=== PATIENT | female | born 1980 | race Caucasian/White ===

== ENCOUNTER 2018-07-29 14:08 | Emergency (ER) | payer BC ==
[2018-07-29 15:49] LABS: Urine Blood NEGATIVE (NEG); Urine Glucose NEGATIVE (NEG); Urine Protein TRACE (NEG)
[2018-07-29 15:50] LABS: Absolute Lymphocytes (CBC) 1.7 K/uL (0.7-4.9); Absolute Monocytes 0.8 K/uL (0.1-1.3); Basophils % 0.5 % (0-1.3); Eosinophils % 1.3 % (0-4.4); Hematocrit 45.5 % (36.0-45.0); Lymphocytes % 14.7 % (15.3-44.8); MPV 7.4 fL (7.6-11.3); Monocytes % 7.2 % (3.3-12.3); RBC Red Blood Cell Count 4.95 M/uL (3.86-4.86)
[2018-07-29] MEDS ORDERED: ONDANSETRON 4 MG/2 ML VIAL ONE (15:50)
[2018-07-29] MEDS ORDERED: DIPHENHYDRAMINE 50 MG/ML VIAL ONE (15:50)
[2018-07-29] MEDS ORDERED: FAMOTIDINE 20 MG/2 ML VIAL IV ONE (15:51)
[2018-07-29] MEDS ORDERED: NA CHLORIDE 0.9% 1,000 ML ONE (15:51)
[2018-07-29] MEDS ORDERED: DICYCLOMINE HCL 20 MG/2 ML AMP IM ONE (15:52)
[2018-07-29] MEDS ORDERED: KETOROLAC 30 MG/ML INJ ONE (16:03)
[2018-07-29 16:11] LABS: ALT/SGPT 22 U/L (12-78); AST/SGOT 11 U/L (15-37); Alkaline Phosphatase 92 U/L (45-117); BUN Blood Urea Nitrogen 10 mg/dL (7-18); Bicarbonate 23 mmol/L (21-32); Bilirubin Direct < 0.1 mg/dL (0-0.2); Bilirubin Total 0.3 mg/dL (0.2-1.0); Glucose Level 88 mg/dL (74-106); Lipase 74 U/L (73-393); Potassium 3.7 mmol/L (3.5-5.1); Protein, Total 7.9 g/dL (6.4-8.2); Sodium Level 140 mmol/L (136-145)
--- NOTE | 2018-07-29 17:17 | RAD REPORT ---
EXAM DESCRIPTION: CT - Abdomen Pelvis W Contrast - 07/29/2018 4:45 pm CLINICAL HISTORY: Abdominal pain COMPARISON: 2016 TECHNIQUE: Computed axial tomography of the abdomen pelvis was obtained. 100 cc Isovue-300 was admin istered intravenously. Oral contrast was not requested which limits evaluation of bowel. All CT scans are performed using dose optimization technique as appropriate and may include automated exposure control or mA/KV adjustment according to patient size. FINDINGS: The liver, spleen, pancreas, and left adrenal and kidneys appear unremarkable. Small right adrenal mass unchanged likely adenoma There is no evidence of diverticulitis.Normal appendix Cholecystectomy. The wall of several loops of jejunum is thickened. Fluid is present within nondilated small bowel. Small amount pelvici ascites IMPRESSION: Thickening of the wall of several loops of jejunum may indicate inflammation or infectio n.
--- NOTE | 2018-07-29 17:38 | ER ---
Nurse's Notes [facility] Name: Carolann Carty Age: 38 yrs Sex: Female : 1980 Arrival Date: 07/29/2018 Time: 14:11 Bed 30 Private MD: Diagnosis: Nausea;Other abdominal pain Presentation: 07/29 14:25 Presenting complaint: Patient states: generalized abd cramping that began today at aa5 0800. Pt also reports nausea, constipation, and states "when I get the pain I get dizzy". Transition of care: patient was not received from another setting of care. Onset of symptoms was July 29, 2018. Risk Assessment: Do you want to hurt yourself or someone else? Patient reports no desire to harm self or others. Initial Sepsis Screen: Does the patient meet any 2 criteria? No. Patient's initial sepsis screen is negative. Does the patient have a suspected source of infection? No. Patient's initial sepsis screen is negative. Care prior to arrival: None. 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 - Social history:: Smoking status: Patient uses tobacco products, smokes one pack cigarettes per day. - Ebola Screening: : No symptoms or risks identified at this time. Screenin:28 Abuse screen: Denies threats or abuse. Denies injuries from another. Nutritional rv screening: No deficits noted. Tuberculosis screening: No symptoms or risk factors identified. Fall Risk None identified. Assessment: 15:27 General: Appears in no apparent distress. uncomfortable, Behavior is calm, cooperative. rv Pain: Complains of pain in abdomen Pain currently is 8 out of 10 on a pain scale. Quality of pain is described as crampy. Neuro: Level of Consciousness is awake, alert, obeys commands, Oriented to person, place, time, situation. Cardiovascular: Patient's skin is warm and dry. Respiratory: Airway is patent. GI: Bowel sounds present X 4 quads. Abd is soft Abdomen is tender to palpation. GI: Reports cramping. : No signs and/or symptoms were reported regarding the genitourinary system. EENT: No signs and/or symptoms were reported regarding the EENT system. Derm: Skin is intact. Musculoskeletal: No signs and/or symptoms reported regarding the musculoskeletal system. Vital Signs: 14:27 BP 143 / 100; Pulse 91; Resp 18 S; Temp 99.0(O); Pulse Ox 100% on R/A; Weight 93.44 kg aa5 (R); Height 5 ft. 7 in. (170.18 cm) (R); Pain 6/10; 15:30 BP 131 / 90; Pulse 94; Resp 18; Pulse Ox 100% ; rv 16:00 BP 118 / 80; Pulse 77; Resp 17; Pulse Ox 97% ; rv 16:56 BP 128 / 80; Pulse 81; Resp 16; Temp 97.9(O); Pulse Ox 100% ; lt1 17:01 BP 128 / 82; Pulse 81; Resp 18; Temp 98; Pulse Ox 99% ; rv 17:50 BP 126 / 79; Pulse 76; Resp 17; Temp 98; Pulse Ox 99% ; rv 14:27 Body Mass Index 32.26 (93.44 kg, 170.18 cm) aa5 ED Course: 14:11 Patient arrived in ED. mr 14:25 Arm band placed on. aa5 14:26 Triage completed. aa5 14:56 Duke Drummond PA is PHCP. cp 14:56 Wes Mosley MD is Attending Physician. cp 15:14 Gerardo Alarcon, JULIA is Primary Nurse. rv 15:20 Inserted saline lock: 22 gauge in right forearm, using aseptic technique. Blood rv collected. 15:29 Patient has correct armband on for positive identification. Bed in low position. Call rv light in reach. Side rails up X 1. Pulse ox on. NIBP on. 16:[address] via wheelchair. nj 16:46 CT Abd/Pelvis - IV Contrast Only In Process Unspecified. EDMS 17:37 Ernesto Galarza MD is Referral Physician. cp 17:51 No provider procedures requiring assistance completed. IV discontinued, intact, rv bleeding controlled, No redness/swelling at site. Pressure dressing applied. Administered Medications: 15:35 Drug: Zofran 4 mg Route: IVP; Site: right forearm; rv 17:00 Follow up: Response: Nausea is decreased rv 15:35 Drug: NS 0.9% 1000 ml Route: IV; Rate: 1 bolus; Site: right forearm; rv 17:00 Follow up: IV Status: Completed infusion; IV Intake: 1000ml rv 15:40 Drug: Benadryl 12.5 mg Route: IVP; Site: right forearm; rv 16:59 Follow up: Response: Marked relief of symptoms; Pain is decreased rv 15:42 Drug: Pepcid 20 mg Route: IVP; Site: right forearm; rv 17:00 Follow up: Response: Marked relief of symptoms; Pain is decreased rv 15:45 Drug: Bentyl 20 mg Route: IM; Site: right deltoid; rv 16:59 Follow up: Response: Marked relief of symptoms; Pain is decreased rv 15:55 Drug: TORadol 30 mg Route: IVP; Site: right forearm; rv 16:59 Follow up: Response: Marked relief of symptoms; Pain is decreased rv 17:45 Drug: Cipro 500 mg Route: PO; rv 17:52 Follow up: Response: Medication administered at discharge. rv 17:45 Drug: metroNIDAZOLE 500 mg Route: PO; rv 17:52 Follow up: Response: Medication administered at discharge. rv 18:00 Drug: morphine 2 mg Route: IVP; Site: right forearm; rv 18:00 Follow up: Response: Medication administered at discharge. rv Intake: 17:00 IV: 1000ml; Total: 1000ml. rv Outcome: 17:39 Discharge ordered by MD. cp 17:51 Discharged to home ambulatory, with a friend driving the patient home. rv 17:51 Condition: good 17:51 Discharge instructions given to patient, Instructed on discharge instructions, follow up and referral plans. medication usage, Demonstrated understanding of instructions, follow-up care, medications, Prescriptions given X 4. 18:01 Patient left the ED. rv Signatures: Dispatcher [employer] EFRAIN Luis AntonioNicole NilsonVickie, RN RN aa5 Duke Drummond PA PA Hugo Smith Ronaldo, RN RN rv Katya Gage lt1 Corrections: (The following items were deleted from the chart) 17:02 17:01 BP 128 / 82; Pulse 81bpm; Resp 18bpm; Pulse Ox 99%; Temp 98.5F; rv rv
--- NOTE | 2018-07-29 17:39 | EDPHYS ---
Physician Documentation [facility] Name: Carolann Carty Age: 38 yrs Sex: Female : 1980 Arrival Date: 07/29/2018 Time: 14:11 Bed 30 Private MD: ED Physician Wes Mosley HPI: 07/29 15:25 This 38 yrs old Female presents to ER via Ambulatory with complaints of cp Abdominal Cramping, Nausea, Dizziness. 15:25 The patient presents with abdominal pain that is diffuse. Onset: The symptoms/episode cp began/occurred this morning. The symptoms do not radiate. Associated signs and symptoms: Pertinent positives: nausea, Pertinent negatives: blood in stools, constipation, diarrhea, dysuria, fever, headache, shortness of breath, vomiting. The symptoms are described as crampy. Severity of pain: in the emergency department the pain has improved mildly. 15:25 The patient has experienced similar episodes in the past, multiple times, but today's cp symptoms are worse, more painful. 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 - Social history:: Smoking status: Patient uses tobacco products, smokes one pack cigarettes per day. - Ebola Screening: : No symptoms or risks identified at this time. ROS: 15:30 Constitutional: Negative for body aches, chills, fever, poor PO intake. cp 15:30 Eyes: Negative for injury, pain, redness, and discharge. cp 15:30 ENT: Negative for drainage from ear(s), ear pain, sore throat, difficulty swallowing, difficulty handling secretions. 15:30 Neck: Negative for pain with movement, pain at rest, stiffness. 15:30 Cardiovascular: Negative for chest pain, edema, palpitations. 15:30 Respiratory: Negative for cough, shortness of breath, wheezing. 15:30 Abdomen/GI: Positive for abdominal pain, nausea, abdominal cramps, Negative for vomiting, diarrhea, constipation, black/tarry stool, rectal bleeding. 15:30 Back: Negative for radiated pain. 15:30 : Negative for urinary symptoms, vaginal bleeding, vaginal discharge. 15:30 Skin: Negative for cellulitis, rash. 15:30 Neuro: Positive for dizziness, Negative for altered mental status, headache, weakness. 15:30 All other systems are negative. Exam: 15:40 Constitutional: The patient appears in no acute distress, alert, awake, non-toxic, well cp developed, well nourished, uncomfortable. 15:40 Head/Face: Normocephalic, atraumatic. cp 15:40 Eyes: Periorbital structures: appear normal, Conjunctiva: normal, no exudate, no injection, Sclera: no appreciated abnormality, Lids and lashes: appear normal, bilaterally. 15:40 ENT: External ear(s): are unremarkable, Nose: is normal, Mouth: Lips: moist, Oral mucosa: pink and intact, moist, Posterior pharynx: is normal, airway is patent, no erythema, no exudate. 15:40 Neck: ROM/movement: is normal, is supple, without pain, no range of motions limitations, no nuchal rigidity. 15:40 Chest/axilla: Inspection: normal, Palpation: is normal, no crepitus, no tenderness. 15:40 Cardiovascular: Rate: normal, Rhythm: regular. 15:40 Respiratory: the patient does not display signs of respiratory distress, Respirations: normal, no use of accessory muscles, no retractions, no splinting, no tachypnea, labored breathing, is not present, Breath sounds: are clear throughout, no decreased breath sounds, no stridor, no wheezing. 15:40 Abdomen/GI: Inspection: abdomen appears normal, Bowel sounds: active, all quadrants, Palpation: soft, in all quadrants, moderate abdominal tenderness, in all quadrants, rebound tenderness, is not appreciated, voluntary guarding, is elicited in all quadrants. 15:40 Back: pain, is absent, ROM is normal. 15:40 Skin: no rash present. 15:40 Neuro: Orientation: to person, place \T\ time. Mentation: is normal. Vital Signs: 14:27 BP 143 / 100; Pulse 91; Resp 18 S; Temp 99.0(O); Pulse Ox 100% on R/A; Weight 93.44 kg aa5 (R); Height 5 ft. 7 in. (170.18 cm) (R); Pain 6/10; 15:30 BP 131 / 90; Pulse 94; Resp 18; Pulse Ox 100% ; rv 16:00 BP 118 / 80; Pulse 77; Resp 17; Pulse Ox 97% ; rv 16:56 BP 128 / 80; Pulse 81; Resp 16; Temp 97.9(O); Pulse Ox 100% ; lt1 17:01 BP 128 / 82; Pulse 81; Resp 18; Temp 98; Pulse Ox 99% ; rv 17:50 BP 126 / 79; Pulse 76; Resp 17; Temp 98; Pulse Ox 99% ; rv 14:27 Body Mass Index 32.26 (93.44 kg, 170.18 cm) aa5 MDM: 14:56 Patient medically screened. cp 17:38 Data reviewed: vital signs, nurses notes, lab test result(s), radiologic studies, CT cp scan. 17:38 Differential diagnosis: appendicitis, gastritis, non-specific abd pain, pancreatitis, cp Pyelonephritis, Ureterolithiasis, urinary tract infection. 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 Response to treatment: the patient's symptoms have markedly improved after treatment, and as a result, I will discharge patient. 07/29 15:21 Order name: Basic Metabolic Panel; Complete Time: 16:18 cp 07/29 17:23 Interpretation: Normal except: CL 108; GFR 84. cp 07/29 15:21 Order name: CBC with Diff; Complete Time: 16:18 cp 07/29 17:23 Interpretation: Normal except: WBC 11.9; RBC 4.95; HCT 45.5; MPV 7.4; IGLESIA% 76.3; LYM% cp 14.7; NEUT A 9.0. 07/29 15:21 Order name: Creatinine for Radiology; Complete Time: 16:18 cp 07/29 15:21 Order name: Hepatic Function; Complete Time: 16:18 cp 07/29 17:23 Interpretation: Normal except: AST 11; GLOB 3.9; A/G 1.0. cp / 15:21 Order name: Lipase; Complete Time: 16:18 cp /07 15:38 Order name: Urine Dipstick--Ancillary (enter results); Complete Time: 16:18 eb 07/29 15:38 Order name: Urine --Ancillary (enter results); Complete Time: 16:18 eb 07/29 16:24 Order name: CT Abd/Pelvis - IV Contrast Only; Complete Time: 17:22 cp 07/29 15:21 Order name: IV Saline Lock; Complete Time: 15:27 cp 07/29 15:21 Order name: Labs collected and sent; Complete Time: 15:27 cp 07/29 15:21 Order name: Urine Dipstick-Ancillary (obtain specimen); Complete Time: 15:27 cp 07/29 15:21 Order name: Urine Test (obtain specimen); Complete Time: 15:27 cp 07/29 17:33 Order name: PO challenge; Complete Time: 17:48 cp Administered Medications: 15:35 Drug: Zofran 4 mg Route: IVP; Site: right forearm; rv 17:00 Follow up: Response: Nausea is decreased rv 15:35 Drug: NS 0.9% 1000 ml Route: IV; Rate: 1 bolus; Site: right forearm; rv 17:00 Follow up: IV Status: Completed infusion; IV Intake: 1000ml rv 15:40 Drug: Benadryl 12.5 mg Route: IVP; Site: right forearm; rv 16:59 Follow up: Response: Marked relief of symptoms; Pain is decreased rv 15:42 Drug: Pepcid 20 mg Route: IVP; Site: right forearm; rv 17:00 Follow up: Response: Marked relief of symptoms; Pain is decreased rv 15:45 Drug: Bentyl 20 mg Route: IM; Site: right deltoid; rv 16:59 Follow up: Response: Marked relief of symptoms; Pain is decreased rv 15:55 Drug: TORadol 30 mg Route: IVP; Site: right forearm; rv 16:59 Follow up: Response: Marked relief of symptoms; Pain is decreased rv 17:45 Drug: Cipro 500 mg Route: PO; rv 17:52 Follow up: Response: Medication administered at discharge. rv 17:45 Drug: metroNIDAZOLE 500 mg Route: PO; rv 17:52 Follow up: Response: Medication administered at discharge. rv 18:00 Drug: morphine 2 mg Route: IVP; Site: right forearm; rv 18:00 Follow up: Response: Medication administered at discharge. rv Disposition: 07/29/18 17:39 Discharged to Home. Impression: Nausea, Other abdominal pain. - Condition is Stable. - Discharge Instructions: Abdominal Pain, Adult, Nausea, Adult. - Prescriptions for Zofran 4 mg Oral Tablet - take 1 tablet by ORAL route every 12 hours As needed; 20 tablet. Cipro 500 mg Oral Tablet - take 1 tablet by ORAL route every 12 hours for 10 days; 20 tablet. Metronidazole 500 mg Oral Tablet - take 1 tablet by ORAL route every 8 hours; 30 tablet. Tramadol 50 mg Oral Tablet - take 1 tablet by ORAL route every 8 hours As needed as needed; 20 tablet. - Medication Reconciliation Form, Thank You Letter, Antibiotic Education, Prescription Opioid Use form. - Follow up: Ernesto Galarza MD; When: 2 - 3 days; Reason: Recheck today's complaints. - Problem is new. - Symptoms have improved. Addendum: 07/31/2018 07:04 Co-signature as Attending Physician, Wes Mosley MD. r n Signatures: Dispatcher [employer] EDMS Wes Mosley MD MD rn Calderon, Audri, RN RN aa5 Duke Drummond PA PA cp Vicente, Ronaldo, JULIA RN rv Corrections: (The following items were deleted from the chart) 07/29 18:01 17:39 07/29/2018 17:39 Discharged to Home. Impression: Nausea; Other abdominal pain. rv Condition is Stable. Forms are Medication Reconciliation Form, Thank You Letter, Antibiotic Education, Prescription Opioid Use. Follow up: Ernesto Galarza; When: 2 - 3 days; Reason: Recheck today's complaints. Problem is new. Symptoms have improved. cp
[2018-07-29] MEDS ORDERED: metroNIDAZOLE 500 MG TABLET ONE (17:54)
[2018-07-29] MEDS ORDERED: CIPROFLOXACIN HCL 500 MG TAB ONE (17:54)
[2018-07-29] MEDS ORDERED: MORPHINE 2 MG/ML SYR ONE (18:08)
== END 2018-07-29 18:01 | disposition home or self-care (01) ==
LOC: ER 14:08
DX: R10.9 Unspecified abdominal pain (principal); F17.210 Nicotine dependence, cigarettes, uncomplicated
CPT/HCPCS: 36415; 74177; 80048; 80076; 81003; 81025; 83690; 85025; 96361; 96372; 96374; 96375; 99284; J0500; J2270; J2405; J7030; Q9967

== ENCOUNTER 2024-04-29 14:16 | Emergency (ER) | payer BC ==
--- OUTSIDE RECORDS SUMMARY | 2024-04-29 14:21 | XMS REPORT | Continuity of Care Document ---
Author Name Unknown Address [address] [facility] [address] [place] [address] Organization [facility] Address [address] [facility] [address] [place] [address] Care Team Providers Care Fish Butcher Name Role Phone ZEFERINO MAXWELL Primary Care Physician Unavail able No, PCP Attending Clinician Unavailable FREYA FORBES Attending Clinician Unavailab Freya Fox NP Attending Clinician [phone] LILLIAN Attending Clinician Unavailable Zeferino Maxwell Attending Clinician WATERSElizabeth Attending Clinician Unavailable Desi Fregoso Attending Clinician [phone] ANKUR Attending Clinician Unavailable Jeannine Carreon Attending Clinician [phone] FREYA FORBES Admitting Clinician Unavailab maite SNYDER Admitting Clinician Unavailable MARIA LUISA Admitting Clinician Unavailable ANKUR Admitting Clinician Unavailable Payers Payer Name Policy Type Policy Number Effective Date Expirati on Date Source [facility] [id number] 2014 00:00:00 [place] [id number] 2018 00:00:00 Problems Condition Name Condition Details Condition Category Status Onset Date Resolution Date Last Treatment Date Treating Clinician Comments Source Mixed anxiety and depressive disorder Mixed Anxiety and Depressive Disorder Problem Active 3-05 00:00: 00 [facility] Left foot blister with infection Left Foot Blister with Infection Problem Active 305 00[facility]00: 00 [facility] Dental caries Dental Caries Problem Active 2023-02 0- 00:00: 00 [facility] Right facial swelling Right facial swelling Disease Active 10-20 00:00: 00 [facility] Facial cellulitis Facial cellulitis Disease Active 10-20 00:00: 00 [facility] Gingivitis Gingivitis Disease Active 10-20 00:00: 00 [facility] Dental caries Dental caries Disease Active 10-20 00:00: 00 [facility] Acute upper respirator y infection Acute Upper Respirator y Infection Problem Active 08-08 00:00: 00 [facility] Wheezing Wheezing Problem Active 08-08 00:00: 00 [facility] Allergic rhinitis Allergic Rhinitis Problem Active 08-05 00:00: 00 [facility] Cough Cough Problem Active 08-05 00:00: 00 [facility] Pediculosi s capitis Pediculosi s Capitis Problem Active 14 00:00: 00 [facility] Infestatio n by Sarcoptes scabiei sylvia hominis Infestatio n by Sarcoptes Scabiei Sylvia Hominis Problem Active -03 00:00: 00 [facility] Pruritic rash Pruritic Rash Problem Active - 00:00: 00 [facility] Hyperchole sterolemia Hyperchole sterolemia Problem Active 03-10 00:00: 00 [facility] Essential hypertensi on Essential Hypertensi on Problem Active 03-10 00:00: 00 [facility] Irritable bowel syndrome Irritable Bowel Syndrome Problem Active 03-10 00:00: 00 [facility] Ankylosing spondyliti s Ankylosing Spondyliti s Problem Active 03-10 00:00: 00 [facility] Fatigue Fatigue Problem Active 03-10 00:00: 00 [facility] Candidiasi s of vagina Candidiasi s of Vagina Problem Active 09-24 00:00: 00 [facility] Hidradenit is suppurativ a Hidradenit is Suppurativ a Problem Active 09-22 00:00: 00 [facility] Complete ankylosis of the spine Complete Ankylosis of the Spine Problem Active 09-22 00:00: 00 [facility] Streptococ charles sore throat Streptococ charles Sore Throat Problem Active 2020-02 00:00: 00 [facility] Abnormal blood pressure Abnormal Blood Pressure Problem Active 2020-02 00:00: 00 [facility] Disorder of adrenal gland Disorder of Adrenal Gland Problem Active 04-15 00:00: 00 [facility] Chronic disease of tonsil Chronic Disease of Tonsil Problem Active 04-15 00:00: 00 [facility] Degenerati on of lumbar interverte bral disc Degenerati on of Lumbar Interverte bral Disc Problem Active 04-15 00:00: 00 [facility] 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 Chronic pain syndrome Chronic pain syndrome Problem [facility] [id number] Opioid use disorder Problem [facility] Lumbar spondylosi s Lumbar spondylosi s Problem [facility] Allergies, Adverse Reactions, Alerts Allergy Name Allergy Type Status Severity Reaction(s) Onset Date Inactive Date Treating Clinician Comments Source NO KNOWN ALLERGIE S Drug Class Active [facility] Social History Social Habit Start Date Stop Date Quantity Comments Source [facility] of [facility] Use Current Smoker [facility] Sex Assigned At [facility] Alcoholic beverage intake 2023-10-21 00:00:00 2023-10-21 00:00:00 Current drinker of alcohol (finding) [facility] History of Social function 2023-10-21 00:00:00 2023-10-21 00:00:00 [facility] Tobacco use and exposure 2014-11-28 00:00:00 2014-11-28 00:00:00 Smokeless tobacco non-user [facility] Alcohol Comment 2014-11-28 00:00:00 2014-11-28 00:00:00 Social Drinker (approx 2 x/month) [facility] Smoking Status Start Date Stop Date Source Light Tobacco Smoker [facility] Current Smoker 2024-04-12 00:00:00 [facility] Medications Ordered Medication Name Filled Medication Name Start Date Stop Date Current Medication? Ordering Clinician Indication Dosage Frequency Signature (SIG) Comments Components Source HYDROcodone -Acetaminop hen 10-325 MG HYDROcodone -Acetaminop hen 10-325 MG 04-12 00:00: 00 No HYDROcodon e-Acetamin ophen 10-325 MG Pregabalin 150 MG Pregabalin 150 MG - 00:00: 00 No 1{capsu le} TID Pregabalin 150 MG iopamidol (ISOVUE 370-500 mL) injection 85 mL 10-20 20:30: 00 10-20 20:30 :00 No [id number] 85mL 85 mL, Intravenou s, ONCE, 1 dose, On Wed10/21/23 at 1530, Routine [facility] cefTRIAXone (ROCEPHIN) 1,000 mg in NaCl 0.9% (NS) 100 mL MINI-BAG 10-20 20:00: 00 10-20 21:19 :00 No 1000mg 1,000 mg, IV Piggyback, ONCE, 1 dose, On Shannon 8/29/24 at 1500, Administer over 30 Minutes, 100 mL, Reason for Anti-Infec tive: Documented Infection, Documented Infection Site: HEENT, Duration of Therapy: Once (ED) [facility] ondansetron (ZOFRAN (PF)) injection 4 mg 10-20 17:30: 00 10-20 18:37 :00 No 4mg 4 mg, Slow IV Push, ONCE, 1 dose, On Shannon 10/21/23 at 1230, KANDACE [facility] morpHINE (4 mg/mL) injection 4 mg 10-20 17:30: 00 10-20 18:37 :00 No 4mg 4 mg, Slow IV Push, ONCE, 1 dose, On Shannon 10/21/23 at 1230, STAT [facility] chlorhexidi ne 0.12 % mouthwash 10-20 00:00: 00 Yes [id number] 15mL Swish and spit out 15 mL in the morning and 15 mL in the evening. [facility] ibuprofen 600 mg tablet 10-20 00:00: 00 Yes [id number] 600mg Take 1 tablet by mouth every 6 (six) hours as needed for Pain (scale 4-6). [facility] amoxicillin -clavulanat e 875-125 mg per tablet 10-20 00:00: 00 10-31 04:59 :00 No [id number] 1{tbl} Take 1 tablet by mouth every 12 (twelve) hours for [address] [facility] ranitidine (ZANTAC 75) 75 mg tablet 2014-02 12:33: 13 Yes 75mg Take 75 mg by mouth daily. [facility] Hyoscyamine Sulfate (NULEV) 0.125 mg TbDL 2014-02 12:33: 13 Yes .125mg Take 0.125 mg by mouth as needed. [facility] L.acidophil us-bifido.l ongum (PROBIOTIC PEARLS) 15 mg (1 billion cell) CpDR 2014-02 12:33: 13 Yes 1{each} Take 1 Each by mouth daily. [facility] clonazepam 1 mg tablet TAKE 1/2 TABLET BY MOUTH TWICE DAILY clonazepam 1 mg tablet TAKE 1/2 TABLET BY MOUTH TWICE DAILY No clonazepam 1 mg tablet TAKE 1/2 TABLET BY MOUTH TWICE DAILY [facility] cyclobenzap rine 10 mg tablet TAKE 1 TABLET BY MOUTH EVERY 8 HOURS cyclobenzap rine 10 mg tablet TAKE 1 TABLET BY MOUTH EVERY 8 HOURS No cyclobenza cecilia 10 mg tablet TAKE 1 TABLET BY MOUTH EVERY 8 HOURS [facility] medroxyprog esterone 150 mg/mL intramuscul ar syringe INJECT 1 SYRINGE IN THE MUSCLE EVERY 3 MONTHS medroxyprog esterone 150 mg/mL intramuscul ar syringe INJECT 1 SYRINGE IN THE MUSCLE EVERY 3 MONTHS No medroxypro gesterone 150 mg/mL intramuscu lar syringe INJECT 1 SYRINGE IN THE MUSCLE EVERY 3 MONTHS [facility] naproxen 500 mg tablet TAKE 1 TABLET BY MOUTH EVERY 12 HOURS WITH FOOD OR MILK FOR PAIN naproxen 500 mg tablet TAKE 1 TABLET BY MOUTH EVERY 12 HOURS WITH FOOD OR MILK FOR PAIN No naproxen 500 mg tablet TAKE 1 TABLET BY MOUTH EVERY 12 HOURS WITH FOOD OR MILK FOR PAIN [facility] omeprazole 40 mg capsule,del ayed release TAKE 1 CAPSULE BY MOUTH EVERY MORNING 30 MINUTES BEFORE BREAKFAST omeprazole 40 mg capsule,del ayed release TAKE 1 CAPSULE BY MOUTH EVERY MORNING 30 MINUTES BEFORE BREAKFAST No omeprazole 40 mg capsule,de layed release TAKE 1 CAPSULE BY MOUTH EVERY MORNING 30 MINUTES BEFORE BREAKFAST [facility] escitalopra m 20 mg tablet escitalopra m 20 mg tablet No escitalopr am 20 mg tablet [facility] losartan 50 mg tablet TAKE 1 TABLET BY MOUTH TWICE DAILY losartan 50 mg tablet TAKE 1 TABLET BY MOUTH TWICE DAILY No 1 BID losartan 50 mg tablet TAKE 1 TABLET BY MOUTH TWICE DAILY [facility] pregabalin 150 mg capsule TAKE 1 CAPSULE BY MOUTH EVERY 8 HOURS NEEDED pregabalin 150 mg capsule TAKE 1 CAPSULE BY MOUTH EVERY 8 HOURS NEEDED No pregabalin 150 mg capsule TAKE 1 CAPSULE BY MOUTH EVERY 8 HOURS NEEDED [facility] hydrocodone 10 mg-acetamin ophen 325 mg tablet TAKE 1 TABLET BY MOUTH EVERY 8 TO 12 HOURS FOR 25 DAYS NEEDED hydrocodone 10 mg-acetamin ophen 325 mg tablet TAKE 1 TABLET BY MOUTH EVERY 8 TO 12 HOURS FOR 25 DAYS NEEDED No hydrocodon e 10 mg-acetami nophen 325 mg tablet TAKE 1 TABLET BY MOUTH EVERY 8 TO 12 HOURS FOR 25 DAYS NEEDED [facility] Airsupra 90 mcg-80 mcg/actuati on HFA aerosol inhaler INHALE 2 PUFFS BY MOUTH EVERY 4 HOURS NEEDED FOR WHEEZING. MAX OF 12 PUTFFS PER DAY Airsupra 90 mcg-80 mcg/actuati on HFA aerosol inhaler INHALE 2 PUFFS BY MOUTH EVERY 4 HOURS NEEDED FOR WHEEZING. MAX OF 12 PUTFFS PER DAY No 2inhala tion(s) Q4H Airsupra 90 mcg-80 mcg/actuat ion HFA aerosol inhaler INHALE 2 PUFFS BY MOUTH EVERY 4 HOURS NEEDED FOR WHEEZING. MAX OF 12 PUTFFS PER DAY [facility] butalbital- acetaminoph en-caffeine 50 mg-325 mg-40 mg tablet TAKE 2 TABLETS BY MOUTH EVERY 6 HOURS NEEDED butalbital- acetaminoph en-caffeine 50 mg-325 mg-40 mg tablet TAKE 2 TABLETS BY MOUTH EVERY 6 HOURS NEEDED No butalbital -acetamino phen-caffe ine 50 mg-325 mg-40 mg tablet TAKE 2 TABLETS BY MOUTH EVERY 6 HOURS NEEDED [facility] ondansetron 4 mg disintegrat ing tablet DISSOLVE 1 TABLET BY MOUTH EVERY 8 HOURS NEEDED FOR NAUSEA AND VOMITING ondansetron 4 mg disintegrat ing tablet DISSOLVE 1 TABLET BY MOUTH EVERY 8 HOURS NEEDED FOR NAUSEA AND VOMITING No ondansetro n 4 mg disintegra ting tablet DISSOLVE 1 TABLET BY MOUTH EVERY 8 HOURS NEEDED FOR NAUSEA AND VOMITING [facility] doxepin 25 mg capsule TAKE 1 TO 2 CAPSULES BY MOUTH EVERY DAY AT BEDTIME doxepin 25 mg capsule TAKE 1 TO 2 CAPSULES BY MOUTH EVERY DAY AT BEDTIME No doxepin 25 mg capsule TAKE 1 TO 2 CAPSULES BY MOUTH EVERY DAY AT BEDTIME [facility] Butalbital- APAP-Caffei ne 50-325-40 MG Butalbital- APAP-Caffei ne 50-325-40 MG No Butalbital -APAP-Caff eine 50-325-40 MG hydrOXYzine HCl 25 MG hydrOXYzine HCl 25 MG No hydrOXYzin e HCl 25 MG Naproxen 500 MG Naproxen 500 MG No BID Naproxen 500 MG Losartan Potassium 50 MG Losartan Potassium 50 MG No Losartan Potassium 50 MG Eszopiclone 3 MG Eszopiclone 3 MG No Eszopiclon e 3 MG Ondansetron HCl 4 MG Ondansetron HCl 4 MG No Ondansetro n HCl 4 MG clonazePAM 1 MG clonazePAM 1 MG No clonazePAM 1 MG Escitalopra m Oxalate 20 MG Escitalopra m Oxalate 20 MG No Escitalopr am Oxalate 20 MG Propranolol HCl 20 MG Propranolol HCl 20 MG No Propranolo l HCl 20 MG Doxepin HCl 25 MG Doxepin HCl 25 MG No Doxepin HCl 25 MG Immunizations Ordered Immunization Name Filled Immunization Name Date Status Comments Source COVID-19 (SARS-COV-2) vaccine, unspecified COVID-19 (SARS-COV-2) vaccine, unspecified Unknown Completed [facility] Vital Signs Vital Name Observation Time Observation Value Comments S ource BMI (Body Mass Index) 2024-04-26 00:00:00 34.6 kg/m2 [facility] Body Weight 2024-04-26 00:00:00 3536 [oz_av] [facility] Height 2024-04-26 00:00:00 67 [in_i] [facility] BP Systolic 2024-04-26 00:00:00 134 mm[Hg] [facility] BP Diastolic 2024-04-26 00:00:00 90 mm[Hg] [facility] height 2023-12-29 15:45:00 67 [in_i] [facility] weight-kg 2023-12-29 15:45:00 104.33 kg [facility] bmi 2023-12-29 15:45:00 36.02 kg/m2 [facility] heart rate 2023-12-29 15:45:00 78 /min [facility] blood [facility] systolic 2023-12-29 15:45:00 130 mm[Hg] [facility] blood [facility] diastolic 2023-12-29 15:45:00 81 mm[Hg] [facility] BMI (Body Mass Index) 2023-11-24 00:00:00 36 kg/m2 [facility] Height 2023-11-24 00:00:00 67 [in_i] [facility] BP Systolic 2023-11-24 00:00:00 135 mm[Hg] [facility] Body Weight 2023-11-24 00:00:00 3680 [oz_av] [facility] BP Diastolic 2023-11-24 00:00:00 100 mm[Hg] [facility] Systolic blood pressure 2023-10-21 20:55:00 144 mm[Hg] [facility] Diastolic blood pressure 2023-10-21 20:55:00 72 mm[Hg] [facility] Heart rate 2023-10-21 20:55:00 85 /min [facility] Body temperature 2023-10-21 20:55:00 36.11 Lorraine [facility] Respiratory rate 2023-10-21 20:55:00 18 /min [facility] Oxygen saturation in Arterial blood by Pulse oximetry 2023-10-21 20:55:00 100 /min [facility] Body height 2023-10-21 16:20:00 170.2 cm [facility] Body weight 2023-10-21 16:20:00 104.327 kg [facility] BMI 2023-10-21 16:20:00 36.02 kg/m2 [facility] height 2023-09-29 15:45:00 67 [in_i] [facility] weight-kg 2023-09-29 15:45:00 104.33 kg [facility] bmi 2023-09-29 15:45:00 36.02 kg/m2 [facility] heart rate 2023-09-29 15:45:00 91 /min [facility] blood pressure systolic 2023-09-29 15:45:00 126 mm[Hg] [facility] blood pressure diastolic 2023-09-29 15:45:00 92 mm[Hg] [facility] Body Weight 2023-08-09 00:00:00 3584 [oz_av] [facility] BP Diastolic 2023-08-09 00:00:00 91 mm[Hg] [facility] BMI (Body Mass Index) 2023-08-09 00:00:00 35.1 kg/m2 [facility] BP Systolic 2023-08-09 00:00:00 132 mm[Hg] [facility] Height 2023-08-09 00:00:00 67 [in_i] [facility] Height 2023-08-06 00:00:00 67 [in_i] [facility] BP Systolic 2023-08-06 00:00:00 122 mm[Hg] [facility] BMI (Body Mass Index) 2023-08-06 00:00:00 35.2 kg/m2 [facility] BP Diastolic 2023-08-06 00:00:00 77 mm[Hg] [facility] Body Weight 2023-08-06 00:00:00 3592 [oz_av] [facility] BMI (Body Mass Index) 2023-04-19 00:00:00 36.8 kg/m2 [facility] BP Diastolic 2023-04-19 00:00:00 98 mm[Hg] [facility] Body Weight 2023-04-19 00:00:00 3763.2 [oz_av] [facility] Height 2023-04-19 00:00:00 67 [in_i] [facility] BP Systolic 2023-04-19 00:00:00 148 mm[Hg] [facility] BMI (Body Mass Index) 2022-11-05 00:00:00 36.2 kg/m2 [facility] BP Systolic 2022-11-05 00:00:00 143 mm[Hg] [facility] BP Diastolic 2022-11-05 00:00:00 102 mm[Hg] [facility] Height 2022-11-05 00:00:00 67 [in_i] [facility] Body Weight 2022-11-05 00:00:00 3702.4 [oz_av] [facility] BP Diastolic 2022-06-24 00:00:00 95 mm[Hg] [facility] Height 2022-06-24 00:00:00 67 [in_i] [facility] BMI (Body Mass Index) 2022-06-24 00:00:00 34.3 kg/m2 [facility] BP Systolic 2022-06-24 00:00:00 133 mm[Hg] [facility] Body Weight 2022-06-24 00:00:00 3504 [oz_av] [facility] BP Diastolic 2022-03-10 00:00:00 97 mm[Hg] [facility] Height 2022-03-10 00:00:00 67 [in_i] [facility] BMI (Body Mass Index) 2022-03-10 00:00:00 34.1 kg/m2 [facility] BP Systolic 2022-03-10 00:00:00 166 mm[Hg] [facility] Body Weight 2022-03-10 00:00:00 3481.6 [oz_av] [facility] BP Diastolic 2021-09-22 00:00:00 97 mm[Hg] [facility] Height 2021-09-22 00:00:00 67 [in_i] [facility] BMI (Body Mass Index) 2021-09-22 00:00:00 33.9 kg/m2 [facility] BP Systolic 2021-09-22 00:00:00 143 mm[Hg] [facility] Body Weight 2021-09-22 00:00:00 3462.4 [oz_av] [facility] BP Diastolic 2021-05-23 00:00:00 93 mm[Hg] [facility] Height 2021-05-23 00:00:00 67 [in_i] [facility] BMI (Body Mass Index) 2021-05-23 00:00:00 34 kg/m2 [facility] BP Systolic 2021-05-23 00:00:00 173 mm[Hg] [facility] Body Weight 2021-05-23 00:00:00 3472 [oz_av] [facility] BP Diastolic 2021-01-08 00:00:00 104 mm[Hg] [facility] Height 2021-01-08 00:00:00 67 [in_i] [facility] BMI (Body Mass Index) 2021-01-08 00:00:00 33.5 kg/m2 [facility] BP Systolic 2021-01-08 00:00:00 171 mm[Hg] [facility] Body Weight 2021-01-08 00:00:00 3424 [oz_av] [facility] BP Diastolic 2020-04-15 00:00:00 93 mm[Hg] [facility] Height 2020-04-15 00:00:00 67 [in_i] [facility] BMI (Body Mass Index) 2020-04-15 00:00:00 32.8 kg/m2 [facility] BP Systolic 2020-04-15 00:00:00 151 mm[Hg] [facility] Body Weight 2020-04-15 00:00:00 3347.2 [oz_av] [facility] Procedures Procedure Date / Time Performed Performing Clinician Source CT MAXILLOFACIAL/MANDIBLE W CONTRAST 2023-10-21 19:33:43 Freya Forbes [facility] POCT TEST 2023-10-21 18:40:00 Juanita Forbes [facility] COMP. METABOLIC PANEL (20361) 2023-10-21 18:38:00 Freya Forbes [facility] CBC WITH DIFF 2023-10-21 18:38:00 Freya Forbes [facility] XR, chest, 2 view 2023-08-09 00:00:00 [facility] Adenoid Surgery [facility] Tonsilectomy/adenoids [facility] Appendectomy [facility] Cholecystectomy [facility] Encounters Start Date/Time End Date/Time Encounter Type Admission Type Attending [facility] Facility Care Department Encounter ID Source 2024-04-12 15:54:01 Outpatient No, PCP CLS ARMANDO [id number] [facility] 2024-04-05 15:46:00 Outpatient No, PCP CLS ARMANDO [id number] [facility] 2023-09-29 15:32:01 Outpatient No, PCP CLS ARMANDO [id number] [facility] 2024-04-26 00:00:00 2024-04-26 00:00:00 Zeferino Maxwell APRN-WEB ANALYST-B C: [address] [place] [address] , Ph. [facility] 0305 [facility] 2024-01-19 00:00:00 2024-01-19 00:00:00 (TEL) CLS CLS [id number] [facility] 2024-01-11 00:00:00 2024-01-11 00:00:00 (TEL) CLS CLS [id number] [facility] 2024-01-06 00:00:00 2024-01-06 00:00:00 (TEL) CLS CLS [id number] [facility] 2024-01-05 00:00:00 2024-01-05 00:00:00 (TEL) CLS CLS [id number] [facility] 2023-12-29 00:00:00 2023-12-29 00:00:00 Office Visit- Est Pt.- Level 4 CLS CLS [id number] [facility] 2023-12-20 00:00:00 2023-12-20 00:00:00 (TEL) CLS CLS [id number] [facility] 2023-11-24 00:00:00 2023-11-24 00:00:00 Zeferino Maxwell APRN-WEB ANALYST-B C: [address] [place] [address] , Ph. [facility] [address] [facility] 2023-11-17 00:00:00 2023-11-17 00:00:00 (TEL) CLS CLS [id number] [facility] 2023-11-01 00:00:00 2023-11-01 00:00:00 (TEL) CLS CLS [id number] [facility] 2023-10-21 11:22:00 2023-10-21 18:17:00 Emergency X ADEJUANITA SHEPPARDBRIL [facility] ERT [id number] [facility] 2023-10-21 11:22:00 2023-10-21 18:17:00 Emergency Aderibigbe, Jubril [facility] [id number] [facility] 2023-10-18 00:00:00 2023-10-18 00:00:00 (TEL) CLS CLS [id number] [facility] 2023-09-29 00:00:00 2023-09-29 00:00:00 (F/U) Follow Up Visit CLS CLS [id number] [facility] 2023-08-09 00:00:00 2023-08-09 00:00:00 CLARISSA Bennett-B C: [address] [place] [address], [address] [address] , [address] [facility] 0617 [facility] 2023-08-06 00:00:00 2023-08-06 00:00:00 Zeferino Maxwell APRN-MARTA-B C: [address] [place] [address], [address] [address] , [address] [facility] 2023-04-19 00:00:00 2023-04-19 00:00:00 Zeferino Hans DBAS-WEB ANALYST-B C: [address] [facility], [address], [place] [address] , [address] [facility] [id number] [facility] 2022-11-05 00:00:00 2022-11-05 00:00:00 Outpatient CHRETIEN_F [facility] [id number] [facility] 2022-11-05 00:00:00 2022-11-05 00:00:00 Zeferino Hans DBAS-WEB ANALYST-B C: [address] [facility], [address], [place] [address] , Ph[address] [facility] [id number] [facility] 2022-10-28 00:00:00 2022-10-28 00:00:00 Outpatient CHRETIEN_F [facility] [id number] [facility] 2022-06-24 00:00:00 2022-06-24 00:00:00 Outpatient CHRETIEN_F [facility] [id number] [facility] 2022-06-24 00:00:00 2022-06-24 00:00:00 Zeferino Maxwell APRN-WEB ANALYST-B C: [address] [facility], [address], [place] [address] , [address] [facility] [id number] [facility] 2022-03-10 00:00:00 2022-03-10 00:00:00 Outpatient CHRETIEN_F [facility] [id number] [facility] 2022-03-10 00:00:00 2022-03-10 00:00:00 Zeferino Hans DBAS-WEB ANALYST-B C: [address] [facility], [address], [place] [address] , [address] [facility] [id number] [facility] 2021-10-01 00:00:00 2021-10-01 00:00:00 Outpatient CHRETIEN_F [facility] [id number] [facility] 2021-09-23 00:00:00 2021-09-23 00:00:00 Outpatient CHRETIEN_F [facility] [id number] [facility] 2021-09-22 00:00:00 2021-09-22 00:00:00 Outpatient CHRETIEN_F [facility] [id number] [facility] 2021-09-22 00:00:00 2021-09-22 00:00:00 Zeferino Maxwell APRN-WEB ANALYST-B C: [address] [facility], [address], [place] [address] , Ph[address] [facility] [id number] [facility] 2021-09-22 00:00:00 2021-09-22 00:00:00 Outpatient LucianoZeferino sanchez [facility] [id number] 2021-05-23 12:25:00 2021-05-23 12:25:00 Outpatient WATERS_S [facility] [id number] [facility] 2021-05-23 00:00:00 2021-05-23 00:00:00 Outpatient Desi Fregoso [facility] [id number] 2021-05-23 00:00:00 2021-05-23 00:00:00 CATRACHITO CampbellWORKFORCE DEVELOPMENT ASSISTANT-C: [address] [facility], [address], [place] [address] , Ph. [facility] [id number] [facility] 2021-04-11 04:53:00 2021-04-11 04:53:00 Outpatient WATERS_S [facility] [id number] [facility] 2021-03-25 06:34:00 2021-03-25 06:34:00 Outpatient WATERS_S [facility] [id number] [facility] 2021-03-24 02:05:00 2021-03-24 02:05:00 Outpatient WATERS_S [facility] [id number] [facility] 2021-01-08 11:25:00 2021-01-08 11:25:00 Outpatient SCHAUBROECK _L [facility] [id number] [facility] 2021-01-08 00:00:00 2021-01-08 00:00:00 Outpatient Jeannine Carreon [facility] [id number] 00:00:00 2021-01-08 00:00:00 Jeannine ty, [facility]-: [address] [place] [address], [address], [place] [address] , Ph. [facility] [id number] [facility] 2020-04-18 01:54:00 2020-04-18 01:54:00 Outpatient SCHAUBROECK _L [facility] [id number] [facility] 2020-04-15 04:34:00 2020-04-15 04:34:00 Outpatient SCHAUBROECK _L [facility] [id number] [facility] 2020-04-15 00:00:00 2020-04-15 00:00:00 Outpatient Jeannine Carreon [facility] [id number] 2020-04-15 00:00:00 2020-04-15 00:00:00 Jeannine Ramon Jonna k, [facility]-C: [address] [facility], [address], [place] [address] , [address] [facility] [id number] [facility] Results Test Description Test Time Test Comments Results Resul t Comments Source CT MAXILLOFACIAL/MAN DIBLE W CONTRAST 2023-09-24 9 19:45:36 EXAM: CT MAXILLOFACIAL/RAY IBLE W CONTRAST History/Indication : Right facial swelling, 3 days of antibiotics so far Comparison: None Technique: Axial postcontrast images were obtained from lateral ventriclesthrough the thyroid level. Findings: Visualized aspects of the brain, orbits and paranasal sinuseswere without worrisome findings. The teeth are generally disrepair with numerous cracked teeth and severalapical lucencies. This is not specifically worse on the right sideinferiorly, but nevertheless there is obvious gingival fullness, likelygingivitis, no drainable collection, annotated on numerous slices of series2. There is associated right-sided lower facial cellulitis, also without adrainable collection. The airway is intact. [facility] WITH [id number] 18:55:28* Test Item Value Reference Range Interpretation Comme nts WBC (test code = 6690-2) 10.57 4.30-11.10 RBC (test code = 789-8) 4.25 3.93-5.25 HGB (test code = 718-7) 13.9 g/dL 11.6-15.0 HCT (test code = 4544-3) 40.0 % 35.7-45.2 MCV (test code = 787-2) 94.1 fL 80.6-95.5 MCH (test code = 785-6) 32.7 pg 25.9-32.8 MCHC (test code = 786-4) 34.8 g/dL 31.6-35.1 RDW-SD (test code = 21561-3) 47.8 fL 39.0-49.9 RDW-CV (test code = 788-0) 14.0 % 12.0-15.5 PLT (test code = 777-3) 368 166-358 H MPV (test code = 85234-3) 9.0 fL 9.5-12.9 L NRBC/100 WBC (test code = 5853309844) 0.0 0.0-10.0 NRBC x10^3 (test code = 3974715037) See_Comment [Automated messa ge] The system which generated this result transmitted reference range: 10*3/?L. The reference range was not used to interpret this result as normal/abnormal. GRAN MAT (NEUT) % (test code = 770-8) 66.5 % IMM GRAN % (test code = 1911052334) 0.50 % LYMPH % (test code = 736-9) 22.9 % MONO % (test code = 5905-5) 7.9 % EOS % (test code = 713-8) 1.4 % BASO % (test code = 706-2) 0.8 % GRAN MAT x10^3(ANC) (test code = 8698101596) 7.03 10*3/uL 1.88-7.09 IMM GRAN x10^3 (test code = 5919811239) 0.05 10*3/uL 0.00-0.06 LYMPH x10^3 (test code = 731-0) 2.42 10*3/uL 1.32-3.29 MONO x10^3 (test code = 742-7) 0.84 10*3/uL 0.33-0.92 EOS x10^3 (test code = 711-2) 0.15 10*3/uL 0.03-0.39 BASO x10^3 (test code = 704-7) 0.08 10*3/uL 0.01-0.07 H Lab Interpretation (test code = 85375-0) [facility]normal [id number] 18:40:00* Test Item Value Reference Range Interpretation Comme nts POCT PREG (test code = 1605) Negative On board controls acceptable with C Line (test code = 3574) Yes Lab Interpretation (test cod e = 20501-0) Normal [facility] Ag [Presence] in Respiratory system specimen by Rapid [id number] 10:09:00* Test Item Value Reference Range Interpretation Comme nts SARS CoV 2 (test code = SARS CoV 2) [facility] [id number] 10:09:00 * Test Item Value Reference Range Interpretation Comme nts Strep (test code = Strep) negative [facility] Notes Date/Time Note Provider Source 2023-10-21 15:55:44 Patient dc home. Follow up with dentist. Return if worsening symptoms. LAT Lex Jackson RN [facility] 2023-10-21 11:19:03 Patient has swollen face on right side for about 3 days. Dentist sent her here, she is already on Clindamycin and has been taking it for three days that was also prescribed by dentist. Hx of dental carries and auto immune disorders. LAT Didier Wallace RN [facility]
[2024-04-29] MEDS ORDERED: MORPHINE 4 MG/ML SYR ONE ×2 (16:28→20:00)
[2024-04-29 16:32] LABS: Absolute Basophils 0.1 K/uL (0-0.5); Absolute Eosinophils 0.1 K/uL (0-0.5); Absolute Monocytes 0.6 K/uL (0.1-1.3); Absolute Neutrophil 6.7 K/uL (1.8-8.0); Basophils % 0.7 % (0-1.3); Hematocrit 42.2 % (36.0-45.0); Hemoglobin 14.5 g/dL (12.0-15.0); Lymphocytes % 21.1 % (15.3-44.8); MCH 32.5 pg (27.0-35.0); MCHC 34.5 g/dL (32.0-36.0); MCV 94.3 fL (80-100); MPV 7.3 fL (7.6-11.3); Monocytes % 6.5 % (3.3-12.3); Neutrophils % 70.7 % (41.7-73.7); Platelets 362 thou/uL (152-406); RBC Red Blood Cell Count 4.47 M/uL (3.86-4.86); Red Cell Distribution Width 14.1 % (12.1-15.2)
[2024-04-29 16:42] LABS: PTT, Activated Partial Thromb 34.2 SECONDS (27.2-37.4); Protime INR 1.06
[2024-04-29 16:56] LABS: ALT/SGPT 18 U/L (13-56); Albumin 3.4 g/dL (3.4-5.0); Albumin/Globulin Ratio 0.9 (1.1-1.8); Alkaline Phosphatase 103 U/L (45-117); Anion Gap 8.6 mEq/L (5.0-15.0); BUN Blood Urea Nitrogen 7 mg/dL (7-18); Bicarbonate 27 mEq/L (21-32); Bilirubin Total 0.3 mg/dL (0.2-1.0); Glomerular Filtration Rate 115 ml/min (=/>90); Glucose Level 86 mg/dL (74-106); Potassium 3.6 mEq/L (3.5-5.1); Protein, Total 7.4 g/dL (6.4-8.2); Sodium Level 134 mEq/L (136-145)
[2024-04-29 17:10] LABS: AST/SGOT < 10 U/L (15-37)
[2024-04-29] MEDS ORDERED: AMPICILLIN/SULBACTAM 3GM/VIAL ONE (17:22)
[2024-04-29] MEDS ORDERED: NA CHLORIDE 0.9% 100 ML ONE (17:22)
--- NOTE | 2024-04-29 18:02 | RAD REPORT ---
EXAMINATION: CT MAXILLOFACIAL WITH CONTRAST CLINICAL INDICATION: Female, 44 years old. SWELLING TECHNIQUE: Axial images were obtained through the facial bones and orbits with intravenous contrast. Sagittal and coronal reconstructions were created from the data. One or more of the following dose reduction techniques were used: Automated exposure control, adjustment of the mA and/or kV according to patient size, and/or iterative reconstruction. Unless otherwise specified, incidental findings do not require dedicated imaging follow-up. FS1938. COMPARISON: No prior exam. FINDINGS: SOFT TISSUE: Left facial edema. No discrete fluid collection identified. BONES: No fracture. Multiple dental caries identified involving the maxillary teeth. The mandibular t eeth are all absent. No periapical lucencies seen. ORBITS: The globes are intact. No intraorbital hemorrhage or mass. SINUSES: Mucosal thickening left maxillary sinus. BRAIN: No acute abnormalities in the visualized intracranial structures. IMPRESSION: Left facial soft tissue swelling likely reflect a cellulitis. No abscess identified. Numerous dental caries involving the maxillary teeth.
[2024-04-29 18:20] LABS: Specific Gravity 1.021 (1.005-1.030); Sqamous Epithelial <5 /HPF (None Seen); Urine Bacteria <20 /HPF (<20); Urine Bilirubin NEGATIVE (Negative); Urine Blood Negative (Negative); Urine Clarity Turbid (Clear); Urine Color Light-Yellow (Yellow); Urine Culture Reflex Order NOT NEEDED; Urine Glucose NEGATIVE (Negative); Urine Ketones NEGATIVE (Negative); Urine Microscopic Reflex YN ORDER UMIC; Urine Nitrite NEGATIVE (Negative); Urine Protein NEGATIVE (Negative); Urine RBC <5 /HPF (None Seen); Urine Urobilinogen Normal (Normal); Urine WBC <5 /HPF (<5); Urine pH 6.5 (5.0-7.0)
--- NOTE | 2024-04-29 18:56 | P.CNS ---
Date of Consult: 04/29/24 Spoke with [facility] via telephone regarding possible consultation regarding facial cellulitis. CT face images were personally reviewed and there appears to be significant periapical lucency around tooth root of #13 which is likely source of infection. I recommend transfer to facility with OMFS to allow for extraction and source control on infection since no OMFS service is available here.
--- NOTE | 2024-04-29 18:57 | EDPHYS ---
Physician Documentation [facility] Name: Carolann Carty Age: 44 yrs Sex: Female : 1980 Arrival Date: 04/29/2024 Time: 14:16 Bed 3 Private MD: ED Physician Mina Kumar HPI: 04/29 15:10 This 44 yrs old Female presents to ER via Ambulatory with complaints of Abscess, foot cp infection. 15:10 The patient presents with cellulitis of the left side of face. Description: swollen, cp tense. Onset: The symptoms/episode began/occurred this morning. Possible cause(s): dental infection. Associated signs and symptoms: Pertinent negatives: fever. 15:10 Patient also concerned about infection of left foot. Currently taking prescribed cp Clindamycin for dental infection. 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 - Infectious Disease History:: Denies. - Social history:: Smoking status: Patient reports the use of cigarette tobacco products. ROS: 15:15 Constitutional: Negative for body aches, chills, fever, poor PO intake, cp 15:15 Cardiovascular: Negative for chest pain, edema, palpitations, 15:15 Eyes: Negative for injury, pain, redness, and discharge, cp 15:15 Respiratory: Negative for cough, shortness of breath, wheezing, 15:15 Abdomen/GI: Negative for abdominal pain, vomiting, diarrhea, constipation, 15:15 MS/extremity: Positive for erythema, of the plantar side of left foot, cp 15:15 Neuro: Negative for altered mental status, dizziness, weakness, 15:15 All other systems are negative, Exam: 15:20 Constitutional: The patient appears in no acute distress, alert, awake, cp non-diaphoretic, non-toxic, well developed, well nourished, uncomfortable, 15:20 Head/face: Noted is swelling, that is moderate, of the left cheek, of the with cp extension of swelling to under left eye and to left lower jawline, tenderness, that is moderate, 15:20 Eyes: Pupils: equal, round, and reactive to light and accomodation, Extraocular movements: intact throughout, Conjunctiva: normal, no exudate, no injection, Sclera: no appreciated abnormality, Lids and lashes: appear normal, 15:20 ENT: External ear(s): are unremarkable, Ear canal(s): are normal, clear, TM's: dullness, bilaterally, Nose: is normal, Mouth: Lips: moist, Oral mucosa: moist, Gums: left upper gum line with swelling, erythema, small gum line abscess noted outer back molar area, Tongue: is normal, Posterior pharynx: Airway: no evidence of obstruction, patent, Uvula: midline, swelling, is not appreciated, exudate, is not appreciated, Dental exam: dental caries, that is severe, diffusely, pain, that is moderate, specifically in the upper left first molar (#14) and upper left second molar (#15), Voice: is normal, 15:20 Neck: ROM/movement: is normal, is supple, without pain, no range of motions limitations, no meningismus, no nuchal rigidity, 15:20 Chest/axilla: Inspection: normal, 15:20 Cardiovascular: Rate: tachycardic, Rhythm: regular, 15:20 Musculoskeletal/extremity: Extremities: noted in the side of left foot: well cp circumscribed area of erythema approximate size of quarter with no swelling and no drainage noted, 16:08 ECG was reviewed by the Attending Physician. Vital Signs: 14:57 BP 146 / 101; Pulse 108; Resp 18; Temp 96.8; Pulse Ox 95% ; Weight 54.43 kg; Height 5 iw ft. 7 in. ; Pain 7/10; 16:19 BP 148 / 106; Pulse 96; Resp 18; Pulse Ox 94% on R/A; kn 17:01 BP 141 / 100; Pulse 92; Resp 14; Pulse Ox 92% ; jl7 19:00 BP 143 / 95; Pulse 85; Resp 18; Pulse Ox 95% ; cp4 20:00 BP 159 / 104; Pulse 89; Resp 18; Pulse Ox 95% ; cp4 21:00 BP 141 / 105; Pulse 86; Resp 18; Pulse Ox 95% ; cp4 22:00 BP 154 / 103; Pulse 85; Resp 18; Pulse Ox 95% ; cp4 22:53 BP 155 / 107; Pulse 87; Resp 18; Pulse Ox 95% ; cp4 14:57 Body Mass Index 18.79 (54.43 kg, 170.18 cm) iw 14:57 Pain Scale: Adult iw MDM: 14:58 Medical Screening Exam initiated cp 16:00 Differential diagnosis: abscess, cellulitis, sepsis. cp 19:00 Data reviewed: vital signs, nurses notes, lab test result(s), radiologic studies, CT cp scan, and as a result, I will transfer patient. 19:00 Management of patient was discussed with the following: Paper Latcher: DR Velazquez, ENT, cp recommends transfer for Maxillary/Facial consultation due to periapical lucencies noted on CT. I considered the following discharge prescriptions or medication management in the emergency department Medications were administered in the Emergency Department. See MAR. Independent interpretation of the following test(s) in the Emergency Department EKG: See my EKG interpretation above. Counseling: I had a detailed discussion with the patient and/or guardian regarding the historical points, exam findings, and any diagnostic results supporting the discharge/admit diagnosis, lab results, radiology results, the need to transfer to another facility, [facility] does not immediately have the required specialist. 0308 15:06 Order name: Blood Culture Adult (2) cp 03/ 15:06 Order name: CBC with Diff; Complete Time: 17:13 cp 03/08 17:13 Interpretation: Normal except: MPV 7.3. cp 03/08 15:06 Order name: CMP; Complete Time: 17:13 cp 03/08 17:13 Interpretation: Normal except: NA 134; GLOB 4.0; A/G 0.9. cp 03/08 15:06 Order name: Lactate w/ 2H reflex if indic.; Complete Time: 17:13 cp 03/08 15:06 Order name: Protime (+inr); Complete Time: 17:13 cp 03/08 15:06 Order name: Ptt, Activated; Complete Time: 17:13 cp 03/08 15:06 Order name: Urinalysis w/ reflexes; Complete Time: 18:27 cp 03/08 15:06 Order name: Test, Urine; Complete Time: 18:27 cp 03/08 16:18 Order name: Glucose, Ancillary Testing; Complete Time: 17:13 EDMS 0308 15:06 Order name: CT Facial Bones W/ Con \T\ Mpr; Complete Time: 18:03 cp 03/08 15:06 Order name: Accucheck; Complete Time: 16:24 cp 04/29 15:06 Order name: Cardiac monitoring; Complete Time: 16:04 cp 04/29 15:06 Order name: EKG - Nurse/Tech; Complete Time: 16:04 cp 04/29 15:06 Order name: IV Saline Lock - Large Bore; Complete Time: 16:04 cp 04/29 15:06 Order name: Labs collected and sent; Complete Time: 16:04 cp 04/29 15:06 Order name: O2 Per Protocol; Complete Time: 16:24 cp 04/29 15:06 Order name: O2 Sat Monitoring; Complete Time: 16:23 cp 04/29 15:06 Order name: Vital Signs; Complete Time: 16:23 cp EC:08 Rate is 98 beats/min. Rhythm is regular. MS interval is normal. QRS interval is normal. cp QT interval is normal. T waves are Inverted in lead aVR. Interpreted by me. Reviewed by me. Administered Medications: 16:35 Drug: morphine IVP or IV 4 mg IVP once over 4 mins Route: IVP; Infused Over: 4 mins; kn Site: right forearm; 17:27 Follow up: Response: No adverse reaction; Pain is decreased 17:26 Drug: Ampicillin-Sulbactam Sodium IVPB 3 grams IVPB once over 30 mins; (mix in 100 mL kn NS) Route: IVPB; Infused Over: 30 mins; Site: right forearm; 18:00 Follow up: Response: No adverse reaction; IV Status: Completed infusion jl7 20:07 Drug: vancoMYCIN IVPB 1 grams IVPB once over 2 hrs Route: IVPB; Infused Over: 2 hrs; cp4 Site: right antecubital; 21:44 Follow up: Response: No adverse reaction; IV Status: Completed infusion cp4 20:07 Drug: morphine IVP or IV 4 mg IVP once over 4 mins Route: IVP; Infused Over: 4 mins; cp4 Site: right antecubital; 21:44 Follow up: Response: No adverse reaction; Pain is decreased cp4 22:52 Drug: morphine IVP or IV 2 mg IVP once over 4 mins Route: IVP; Infused Over: 4 mins; cp4 Site: right forearm; 22:52 Follow up: Response: No adverse reaction cp4 Point of Care Testing: Blood Glucose: 16:19 Blood Glucose: 81 mg/dL; kn Ranges: Critical Glucose Levels:Adult <50 mg/dl or >400 mg/dl <40 mg/dl or >180 mg/dl Disposition: 21:22 Co-signature as Attending Physician, Mina Kumar MD I assumed care from physician rt executive assistant to president, I discussed with OMFS at [facility] as well as the hospitalist accepts patient in transfer.. 04/30 09:33 Chart complete. cp Disposition Summary: 04/29/24 18:57 Transfer Ordered Notes: Transfer Location: Other Acute Care Facility cp Reason: Higher level of care cp Condition: Stable cp Problem: new cp Symptoms: have improved cp Accepting Physician: Doctor(04/29/24 22:56) cp4 Diagnosis - Cellulitis and acute lymphangitis of face cp - Other diseases of pulp and periapical tissues cp Forms: - Medication Reconciliation Form cp - SBAR form cp Signatures: Dispatcher [employer] Arlyn Diggs RN RN iw [facility] PA PA cp Mina Kumar MD MD rt Michelle Zheng cp4 JENNA MACIEL RN RN kn Leal, Jahala RN jl7 Corrections: (The following items were deleted from the chart) 04/29 15:06 15:06 BLOOD CULTURE*+BA.LAB.BRZ ordered. EDMS EDMS 15:06 15:06 CBC+H.LAB.BRZ ordered. EDMS EDMS 15:06 15:06 COMPREHENSIVE METABOLIC PANEL+C.LAB.BRZ ordered. EDMS EDMS 15:06 15:06 LACTATE+C.LAB.BRZ ordered. EDMS EDMS 15:06 15:06 PROTIME (+INR)+COAG.LAB.BRZ ordered. EDMS EDMS 15:06 15:06 PTT, ACTIVATED+COAG.LAB.BRZ ordered. EDMS EDMS 15:06 15:06 Urinalysis+U.LAB.BRZ ordered. EDMS EDMS 15:06 15:06 Test, Urine+UC.LAB.BRZ ordered. EDMS EDMS 15:06 15:06 Facial Bones W/ Con \T\ MPR+CT.RAD.BRZ ordered. EDMS EDMS 22:56 18:57 Doctor cp cp4 04/30 09:26 03/08 15:10 Patient also concerned about infection of left foot. cp cp
--- NOTE | 2024-04-29 18:57 | ER ---
Nurse's Notes [facility] Name: Carolann Carty Age: 44 yrs Sex: Female : 1980 Arrival Date: 04/29/2024 Time: 14:16 Bed 3 Private MD: Diagnosis: Cellulitis and acute lymphangitis of face;Other diseases of pulp and periapical tissues Presentation: 04/29 14:57 Chief complaint: Patient states: left sided facial swelling since this morning, has iw been on antibiotics for a bad tooth , also has spot on bottom of left foot , she pulled a callous off and it has not gone away , it was itching. Coronavirus screen: At this time, the client does not indicate any symptoms associated with coronavirus-19. Ebola Screen: No symptoms or risks identified at this time. Initial Sepsis Screen: Does the patient have a suspected source of infection?. Risk Assessment: Do you want to hurt yourself or someone else? Patient reports no desire to harm self or others. Onset of symptoms was April 29, 2024. 14:57 Method Of Arrival: Ambulatory iw 14:57 Acuity: INES 3 iw 14:58 Initial Sepsis Screen: Does the patient meet any 2 criteria? HR > 90 bpm. 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 - Infectious Disease History:: Denies. - Social history:: Smoking status: Patient reports the use of cigarette tobacco products. Screenin:22 [facility] ED Fall Risk Assessment (Adult) History of falling in the last 3 months, kn including since admission No falls in past 3 months (0 pts) Confusion or Disorientation No (0 pts) Intoxicated or Sedated No (0 pts) Impaired Gait No (0 pts) Mobility Assist Device Used No (0 pt) Altered Elimination No (0 pt) Score/Fall Risk Level 0 - 2 = Low Risk Oriented to surroundings, Maintained a safe environment, Hourly rounding (assess needs \T\ fall precautionary measures) done. Abuse screen: Denies threats or abuse. Denies injuries from another. Nutritional screening: No deficits noted. Tuberculosis screening: No symptoms or risk factors identified. Assessment: 16:20 General: Appears in no apparent distress. Behavior is calm, cooperative. Pain: kn Complains of pain in face and mouth Pain Quality of pain is described as aching, Pain began Is continuous, Alleviated by medications, Aggravated by Noted to be. Neuro: No deficits noted. 17:20 EENT: L upper tooth infection, swelling noted to L face that started this morning. pt kn states she has been taking oral abx x 5 days for tooth infection, woke up this morning with L face swelling. . Derm: healing wound noted to bottom of L foot. 18:30 Reassessment: Patient appears in no apparent distress at this time. No changes from jl7 previously documented assessment. Patient and/or family updated on plan of care and expected duration. Pain level reassessed. Patient is alert, oriented x 3, equal unlabored respirations, skin warm/dry/pink. 22:18 Reassessment: Patient appears in no apparent distress at this time. Patient and/or cp4 family updated on plan of care and expected duration. Pain level reassessed. Patient is alert, oriented x 3, equal unlabored respirations, skin warm/dry/pink. Reassessment:. Reassessment:. Vital Signs: 14:57 BP 146 / 101; Pulse 108; Resp 18; Temp 96.8; Pulse Ox 95% ; Weight 54.43 kg; Height 5 iw ft. 7 in. ; Pain 7/10; 16:19 BP 148 / 106; Pulse 96; Resp 18; Pulse Ox 94% on R/A; kn 17:01 BP 141 / 100; Pulse 92; Resp 14; Pulse Ox 92% ; jl7 19:00 BP 143 / 95; Pulse 85; Resp 18; Pulse Ox 95% ; cp4 20:00 BP 159 / 104; Pulse 89; Resp 18; Pulse Ox 95% ; cp4 21:00 BP 141 / 105; Pulse 86; Resp 18; Pulse Ox 95% ; cp4 22:00 BP 154 / 103; Pulse 85; Resp 18; Pulse Ox 95% ; cp4 22:53 BP 155 / 107; Pulse 87; Resp 18; Pulse Ox 95% ; cp4 14:57 Body Mass Index 18.79 (54.43 kg, 170.18 cm) iw 14:57 Pain Scale: Adult iw ED Course: 14:26 Patient arrived in ED. al6 14:47 Duke Drummond PA is PHCP. cp 14:47 Duke Givens MD is Attending Physician. cp 14:58 Triage completed. iw 14:59 Arm band placed on. iw 15:42 JENNA MACIEL, JULIA is Primary Nurse. kn 16:35 Patient has correct armband on for positive identification. Bed in low position. Call kn light in reach. Side rails up X2. 16:35 Inserted saline lock: 22 gauge in left wrist, using aseptic technique. Blood collected. kn Flushed with 10 mL NS. 16:37 Inserted saline lock: 20 gauge in right forearm, using aseptic technique. Blood kn collected. Flushed with 10 mL NS Accessed. 17:48 CT Facial Bones W/ Con \T\ Mpr In Process Unspecified. EDMS 19:01 Inserted IV discontinued, intact, IV d/c per pt request. left wrist. db 19:45 initiated transfer with [facility] spoke with Johnson from transfer center. vk 20:15 Attending Physician role handed off by Duke Givens MD rt 20:15 Mina Kumar MD is Attending Physician. rt 21:25 Patient was accepted to [facility] Gal. to Dr. Cristina \T\2117 Per [employer] [facility], to [facility] vk [id number] , Admin approval [employer] retargeting \T\2117, Report# [phone]. 22:28 initiated transport with [place] spoke with Brad advised that ETA would be 10-15 mins.vk 22:54 No provider procedures requiring assistance completed. Patient transferred, IV remains cp4 in place. 22:55 Provided Education on: transfer. cp4 Administered Medications: 16:35 Drug: morphine IVP or IV 4 mg IVP once over 4 mins Route: IVP; Infused Over: 4 mins; kn Site: right forearm; 17:27 Follow up: Response: No adverse reaction; Pain is decreased kn 17:26 Drug: Ampicillin-Sulbactam Sodium IVPB 3 grams IVPB once over 30 mins; (mix in 100 mL kn NS) Route: IVPB; Infused Over: 30 mins; Site: right forearm; 18:00 Follow up: Response: No adverse reaction; IV Status: Completed infusion jl7 20:07 Drug: vancoMYCIN IVPB 1 grams IVPB once over 2 hrs Route: IVPB; Infused Over: 2 hrs; cp4 Site: right antecubital; 21:44 Follow up: Response: No adverse reaction; IV Status: Completed infusion cp4 20:07 Drug: morphine IVP or IV 4 mg IVP once over 4 mins Route: IVP; Infused Over: 4 mins; cp4 Site: right antecubital; 21:44 Follow up: Response: No adverse reaction; Pain is decreased cp4 22:52 Drug: morphine IVP or IV 2 mg IVP once over 4 mins Route: IVP; Infused Over: 4 mins; cp4 Site: right forearm; 22:52 Follow up: Response: No adverse reaction cp4 Medication: 22:54 VIS not applicable for this client. cp4 Point of Care Testing: Blood Glucose: 16:19 Blood Glucose: 81 mg/dL; kn Ranges: Outcome: 18:57 ER care complete, transfer ordered by . cp 22:54 Transferred by ground EMS to [facility], Transfer form cp4 completed. X-rays sent w/ patient. 22:54 Condition: stable 22:54 Instructed on the need for transfer, 22:56 Patient left the ED. cp4 Signatures: Dispatcher [employer] EDArlyn Kong RN RN Duke Hernandez PA PA cp Leal, Jahala RN RN [email or web address] Frances Kidd RN RN Mina Johnston MD MD rt Potter, Christina cp4 Gail Mckeon KARLENE RN RN Yessenia [id number] Corrections: (The following items were deleted from the chart) 14:59 14:57 Chief complaint: Patient states: left sided facial swelling since this morning, iw has been on antibiotics for a bad tooth iw 14:59 14:57 BP 146 / 101; Pulse 108bpm; Resp 18bpm; Pulse Ox 95%; Temp 96.8F; Pain 7/10, iw Adult; iw 19:19 19:01 Inserted IV discontinued, intact, IV d/c per pt request. kn db
[2024-04-29] MEDS ORDERED: VANCOMYCIN 1 GM/VIAL ONE (19:50)
[2024-04-29] MEDS ORDERED: NA CHLORIDE 0.9% 250 ML ONE (19:50)
[2024-04-29] MEDS ORDERED: MORPHINE 2 MG/ML SYR ONE (22:44)
[2024-04-29 23:23] VITALS: TEMP 96.8
[2024-04-29 23:27] VITALS: O2SAT 95
[2024-04-29 23:31] VITALS: BP 155/107
--- NOTE | 2024-05-02 11:10 | EKG ---
Test Date: 2024-04-29 Test Time: 16:02:34 Operations Management Trainee: DEMARIO MEASUREMENT RESULTS: Intervals: Rate: 98 AL: 162 QRSD: 84 QT: 394 QTc: 503 [place]: P: 51 AL: 162 QRS: 9 T: 62 INTERPRETIVE STATEMENTS: Normal sinus rhythm Low voltage QRS Septal infarct, age undetermined Cannot rule out Inferior infarct, age undetermined Prolonged QT Abnormal ECG No previous ECG available for comparison Electronically Signed On 05-02-24 11:02:33 CDT by Mike Capps
== END 2024-04-29 22:56 ==
LOC: ER 14:16
DX: L03.211 Cellulitis of face (principal); L03.212 Acute lymphangitis of face; K04.99 Other diseases of pulp and periapical tissues; Z72.0 Tobacco use
CPT/HCPCS: 93005; 87040 ×2; 85025; 81001; 36415; 81025; 85610; 82947; 83605; 85730; 80053; 70487; 76377; 99285; Q9967; J3370; J2270; J0295; J7050